=== PATIENT | female | born 1950 | race Caucasian/White ===

== ENCOUNTER 2020-09-15 04:25 | Emergency (ER) | payer MEDICARE ==
--- NOTE | 2020-09-15 05:08 | RADIOLOGY REPORT (SQ) ---
EXAM DESCRIPTION: CT HEAD WITHOUT IV CONTRAST COMPLETED DATE/TME: 09/15/2020 04:48 CLINICAL HISTORY: 70 years, Female, dysphasia COMPARISON: None. TECHNIQUE: Noncontrast images of the brain were obtained. Images stored on PACS. All CT scanners at this facility use dose modulation, iterative reconstruction, and/or weight based dosing when appropriate to reduce radiation dose to as low as reasonably achievable (ALARA). [facility]: Dose Right [facility]: CareDose [facility]: Dose Right [facility]: Teradose 4D [facility]: [employer] Technologies LIMITATIONS: None. FINDINGS: There is no acute intracranial hemorrhage, abnormal mass effect, or major vascular territorial infarction. Bilateral basal ganglia calcifications are noted. There is no hydrocephalus. The calvarium appears intact. The visualized portions of the paranasal sinuses and mastoid air cells are clear. IMPRESSION: No acute abnormality as above. TECHNICAL DOCUMENTATION: Quality ID # [id number]: Final reports with documentation of one or more dose reduction techniques (e.g., Automated exposure control, adjustment of the mA and/or kV according to patient size, use of iterative reconstruction technique) copyright 2011 [employer]- All Rights Reserved
[2020-09-15 06:16] LABS: ABSOLUTE BASOPHILS # (AUTO) 0.1 10^3/uL (0.0-0.2); ABSOLUTE LYMPHOCYTES (AUTO) 1.3 10^3/uL (0.5-4.7); ABSOLUTE MONOCYTES (AUTO) 0.6 10^3/uL (0.1-1.4); ABSOLUTE NEUT (AUTO) 6.6 10^3/uL (1.7-8.2); BASOPHILS % (AUTO) 0.7 % (0-2); EOSINOPHILS % (AUTO) 0.6 % (0-6); HEMATOCRIT 46.3 % (36.0-47.0); HEMOGLOBIN 15.7 g/dL (12.0-15.5); INTERNATIONAL RATION (INR) 0.97; MEAN CORPUSCULAR HEMOGLOBIN 28.4 pg (27.0-33.4); MEAN CORPUSCULAR VOLUME 83 fl (80-97); MONOCYTES % (AUTO) 6.7 % (3-13); PLATELET COUNT 243 10^3/uL (150-450); RED BLOOD COUNT 5.55 10^6/uL (3.72-5.28); RED CELL DISTRIBUTION WIDTH 13.3 % (11.5-14.0); TOTAL CELLS COUNTED % (AUTO) 100 %; WHITE BLOOD COUNT 8.6 10^3/uL (4.0-10.5)
[2020-09-15 06:22] LABS: D-DIMER 0.31 ug/mL (0.00-0.50); PROTHROMBIN TIME 13.1 SEC (11.4-15.4)
--- NOTE | 2020-09-15 06:26 | ER Document Report ---
ED Neuro Symptoms/Deficit - General Chief Complaint: S/S of Possible Stroke Stated Complaint: TROUBLE SPEAKING,NUMBNESS IN EXTREMITIES Time Seen by Provider: 09/15/20 06:04 Primary Care Provider: NAOMI BASS FNP-C [Primary Care Provider] - Follow up as needed Mode of Arrival: Ambulatory Information source: Patient Cannot obtain history due to: Altered mental status Notes: 09/15/20 05:02 - ED Nursing Note by GRECIA HUNTLEY [facility] Num: [id number] : 1950 Patient Age: 70 pt awoke at 0341 w/expressive aphasia that lasted 5 min. she was diaphoretic, shaking, blurred vision, amd bilateral arms numb. she recently was started on BP med. pt drove herself to the hospital. pt speaking is leonardo. equal handgrips. Initialized on 09/15/20 05:02 - END OF NOTE MY NOTES 70-year-old female arrives by POV driving herself to the ER after she experienced 5 minutes of expressive aphasia that began around 0 341. She also had tingling and numbness of all 4 extremities with blurred vision. Patient has had multiple episodes of hypertension problems over the years and last saw [facility] clinic last Monday with 180/108. She was started on a blood pressure medicine that began with I and we suspect this is Avapro 300 mg. 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 She reports at my exam time of 0610 that she no longer has any blurred vision or aphasia problems but still has some tingling of her fingertips and mouth and tongue. Patient's chest x-ray was within normal limits her CT of head was within normal limits. She went to see her nephew on [address] [facility] and began to have nosebleeds and headaches for 4 days while staying there. She returned home here in [place] with hypertension and expressive aphasia at that time which was also brief and self-limiting. Patient reports she does not drink or smoke [place]. She reports last night her [employer] lost and this could be why her blood pressure was high. I advised her of her increased hematocrit and RBCs TRAVEL OUTSIDE OF THE [place] IN LAST 30 DAYS: No - HPI Patient complains to provider of: Paresthesia Onset: Just prior to arrival Awoke with symptoms: Yes Quality of pain: No pain Severity: Mild Pain Level: 1 Was STROKE ALERT Called: No Baseline Cognitive: Alert, oriented X 3 Baseline Gait: Walks w/o assistance - Related Data Allergies/Adverse Reactions: No Known Allergies Allergy (Unverified 09/15/20 05:29) Home Medications: asa, bp med Past Medical History - General Information source: Patient - Social History Smoking Status: Never Smoker Cigarette use (# per day): No Chew tobacco use (# tins/day): No Smoking Education Provided: No Frequency of alcohol use: None Drug Abuse: None Lives with: Family Family History: Reviewed & Not Pertinent Patient has suicidal ideation: No Patient has homicidal ideation: No Review of Systems - Review of Systems Constitutional: No symptoms reported EENT: No symptoms reported Cardiovascular: No symptoms reported Respiratory: No symptoms reported Gastrointestinal: No symptoms reported Genitourinary: No symptoms reported Female Genitourinary: No symptoms reported Musculoskeletal: No symptoms reported Skin: No symptoms reported Hematologic/Lymphatic: No symptoms reported Neurological/Psychological: See HPI, Tingling -: Yes All other systems reviewed and negative Physical Exam - Vital signs Vitals: Temp Pulse Resp BP Pulse Ox 98.2 F 112 H 16 193/104 H 96 09/15/20 04:26 09/15/20 04:26 09/15/20 04:26 09/15/20 04:26 09/15/20 04:26 Interpretation: Hypertensive - General General appearance: Appears well, Alert - HEENT Head: Normocephalic, Atraumatic Eyes: Normal Pupils: PERRL - Respiratory Respiratory status: No respiratory distress Chest status: Nontender Breath sounds: Normal Chest palpation: Normal - Cardiovascular Rhythm: Regular Heart sounds: Normal auscultation Murmur: No - Abdominal Inspection: Normal Distension: No distension Bowel sounds: Normal Tenderness: Nontender Organomegaly: No organomegaly - Rectal Hemorrhoids: Other - deferred - Genitourinary Bimanuel exam: Other - deferred - Back Back: Normal, Nontender - Extremities General upper extremity: Tender - right lat distal arm/prox FA to p/p, Normal color, Normal ROM, Normal temperature General lower extremity: Normal inspection, Nontender, Normal color, Normal ROM, Normal temperature, Normal weight bearing. No: Sayda's sign - Neurological Neuro grossly intact: Yes Cognition: Normal Orientation: AAOx4 Crane Coma Scale Eye Opening: Spontaneous Crane Coma Scale Verbal: Oriented Viviana Coma Scale Motor: Obeys Commands Crane Coma Scale Total: 15 Speech: Normal Motor strength normal: LUE, RUE, LLE, RLE Sensory: Normal - Psychological Associated symptoms: Anxious - Skin Skin Temperature: Warm Skin Moisture: Dry Skin Color: Normal Course - Vital Signs Vital signs: Temp Pulse Resp BP Pulse Ox 98.2 F 75 18 145/66 H 94 09/15/20 04:26 09/15/20 06:37 09/15/20 07:40 09/15/20 07:40 09/15/20 07:40 - Laboratory Result Diagrams: 09/15/20 05:43 09/15/20 06:53 Laboratory results interpreted by me: 09/15/20 09/15/20 09/15/20 05:43 06:53 06:53 RBC 5.55 H Hgb 15.7 H Sodium 136.7 L Glucose 153 H Calcium 10.4 H TSH 0.20 L - Diagnostic Test Radiology Studies Status: Radiology Image Reviewed, Radiology Report Reviewed Radiology reviewed: Reports reviewed Radiology results interpreted by me: 09/15/20 09:56 nad read by me/agree with radiology - EKG Interpretation by Me EKG shows normal: Sinus rhythm Rate: Normal Rhythm: NSR - [address] elevation no ST depression no T wave elevation no T wave depression and axis within normal limits and this was read by myself and I agree with the EKG reading as well. Discharge - Discharge Clinical Impression: Symptoms of cerebrovascular accident (CVA) Hypertension Qualifiers: Hypertension type: unspecified Qualified Code(s): I10 - Essential (primary) hypertension Condition: Stable Disposition: HOME, SELF-CARE Additional Instructions: Follow-up with personal doctor to recheck your blood pressure and also recheck y our H&H. Your hemoglobin was quite high today and needs to be reevaluated. Return to ER as needed take medicines as directed try to maintain a low-salt diet. Prescriptions: Clonidine HCl [Catapres 0.2 mg Tablet] 0.2 mg PO Q12 #60 tab Referrals: NAOMI BASS FNP-C [Primary Care Provider] - Follow up as needed
[2020-09-15] MEDS ORDERED: CLONIDINE HCL 0.2 MG TABLET PO ONE (06:27)
--- NOTE | 2020-09-15 06:57 | RADIOLOGY REPORT (SQ) ---
EXAM DESCRIPTION: XR CHEST 1 VIEW COMPLETED DATE/TME: 09/15/2020 06:19 CLINICAL HISTORY: cva sx COMPARISON: None. FINDINGS: Single frontal radiograph view of the chest. Cardiomediastinal silhouette: Atherosclerotic calcification of the thoracic aorta. Heart is not enlarged. Leads overlie the chest. Lungs: No consolidation, pneumothorax, or pleural effusion. Bones: Degenerative endplate spondylosis of the visualized spine. Upper abdomen: No abnormality identified. IMPRESSION: 1. No acute pulmonary process identified.
[2020-09-15 07:21] LABS: ALBUMIN 4.7 g/dL (3.5-5.0); ALKALINE PHOSPHATASE 94 U/L (38-126); ANION GAP 9 (5-19); ASPARTATE AMINO TRANSFERASE 22 U/L (14-36); BILIRUBIN,DIRECT 0.1 mg/dL (0.0-0.4); BILIRUBIN,TOTAL 0.6 mg/dL (0.2-1.3); BLOOD UREA NITROGEN 15 mg/dL (7-20); CALCIUM 10.4 mg/dL (8.4-10.2); CARBON DIOXIDE 24 mmol/L (22-30); CHLORIDE 104 mmol/L (98-107); CREATINE KINASE 40 U/L (30-135); GLUCOSE 153 mg/dL (75-110); POTASSIUM 4.4 mmol/L (3.6-5.0); TOTAL PROTEIN 8.2 g/dL (6.3-8.2)
[2020-09-15 08:00] VITALS: BP 145/66
--- NOTE | 2020-09-15 17:46 | EKG REPORT ---
SEVERITY:- NORMAL ECG - SINUS RHYTHM : Confirmed by: Gulshan Osorio 15-Sep-2020 17:46:05
== END 2020-09-15 08:21 | disposition home or self-care (01) ==
LOC: ER 04:25
DX: R47.01 Aphasia (principal); R20.0 Anesthesia of skin; R61 Generalized hyperhidrosis; R25.1 Tremor, unspecified; H53.8 Other visual disturbances; I10 Essential (primary) hypertension; Z79.82 Long term (current) use of aspirin; Z79.899 Other long term (current) drug therapy
CPT/HCPCS: 93005; 99285; 36415; 82550; 84443; 85025; 85610; 80053; 84484; 85379; 71045; 70450; 93010; A9270

== ENCOUNTER 2020-11-05 20:31 | Emergency (ER) | payer MEDICARE ==
[2020-11-05 21:43] LABS: ABSOLUTE BASOPHILS # (AUTO) 0.1 10^3/uL (0.0-0.2); ABSOLUTE EOSINOPHILS # (AUTO) 0.1 10^3/uL (0.0-0.6); ABSOLUTE LYMPHOCYTES (AUTO) 1.3 10^3/uL (0.5-4.7); ABSOLUTE MONOCYTES (AUTO) 0.8 10^3/uL (0.1-1.4); BASOPHILS % (AUTO) 0.6 % (0-2); EOSINOPHILS % (AUTO) 0.5 % (0-6); HEMATOCRIT 45.4 % (36.0-47.0); HEMOGLOBIN 15.5 g/dL (12.0-15.5); LYMPHOCYTES % (AUTO) 12.6 % (13-45); MEAN CORPUSCULAR HEMOGLOBIN 28.3 pg (27.0-33.4); MEAN CORPUSCULAR HGB CONC 34.2 g/dL (32.0-36.0); MEAN CORPUSCULAR VOLUME 83 fl (80-97); MONOCYTES % (AUTO) 7.5 % (3-13); PLATELET COUNT 283 10^3/uL (150-450); RED BLOOD COUNT 5.49 10^6/uL (3.72-5.28); RED CELL DISTRIBUTION WIDTH 13.1 % (11.5-14.0); SEGMENTED NEUTROPHILS % (AUTO) 78.8 % (42-78); TOTAL CELLS COUNTED % (AUTO) 100 %; WHITE BLOOD COUNT 10.1 10^3/uL (4.0-10.5)
[2020-11-05 21:51] LABS: ALBUMIN 4.2 g/dL (3.5-5.0); ALKALINE PHOSPHATASE 67 U/L (38-126); ANION GAP 10 (5-19); ASPARTATE AMINO TRANSFERASE 22 U/L (14-36); BILIRUBIN,DIRECT 0.3 mg/dL (0.0-0.4); BILIRUBIN,TOTAL 0.4 mg/dL (0.2-1.3); BLOOD UREA NITROGEN 19 mg/dL (7-20); CALCIUM 11.2 mg/dL (8.4-10.2); CARBON DIOXIDE 34 mmol/L (22-30); CHLORIDE 93 mmol/L (98-107); CREATINE KINASE 42 U/L (30-135); GLUCOSE 190 mg/dL (75-110); POTASSIUM 3.4 mmol/L (3.6-5.0); TOTAL PROTEIN 7.6 g/dL (6.3-8.2)
[2020-11-05 22:00] LABS: CREATINE KINASE MB 0.58 ng/mL (<4.55)
[2020-11-05 22:02] LABS: TROPONIN I < 0.012 ng/mL
--- NOTE | 2020-11-05 23:20 | ER Document Report ---
ED Blood Pressure Problem - General Chief Complaint: High Blood Pressure Stated Complaint: HYPERTENSION Time Seen by Provider: 11/05/20 21:42 Primary Care Provider: RUMA NOVOA NP [Primary Care Provider] - Follow up as needed Mode of Arrival: Medic Information source: Patient Notes: This 70-year-old woman presents to the emergency department with a history of developed rapid heartbeat and also elevated blood pressure was seen at the fire rescue station and the to the emergency department. Patient states that she has been seeing a nurse practitioner and has had her medications changed approximately 3-4 times. She is scheduled to follow-up with a bender machine in a week. There no chest pain episodes of dizziness lightheadedness presently her blood pressure is 126/83 heart rate is 76. Labs were done and are being reviewed. Patient states that she feels silly being here there is nothing that can be done at this point. Explained to her that we are going to monitor her blood pressure closely and will make some treatment decisions if needed. TRAVEL OUTSIDE OF THE [place] IN LAST 30 DAYS: No - Related Data Allergies/Adverse Reactions: No Known Allergies Allergy (Unverified 09/15/20 05:29) Home Medications: Amlodipine 5mg/qd, HCTZ 25mg/qd, clonidine 0.1mg/qd Past Medical History - Social History Smoking Status: Never Smoker Chew tobacco use (# tins/day): No Frequency of alcohol use: None Drug Abuse: None Family History: Reviewed & Not Pertinent Patient has homicidal ideation: No - Past Medical History Cardiac Medical History: Reports: Hx Hypertension Past Surgical History: Reports: Hx Section Review of Systems - Review of Systems Notes: Constitutional: Negative for fever. HENT: Negative for sore throat. Eyes: Negative for visual changes. Cardiovascular: See HPI Respiratory: Negative for shortness of breath. Gastrointestinal: Negative for abdominal pain, vomiting or diarrhea. Genitourinary: Negative for dysuria. Musculoskeletal: Negative for back pain. Skin: Negative for rash. Neurological: Negative for headaches, weakness or numbness. 10 point ROS negative except as marked above and in HPI. Physical Exam - Vital signs Vitals: Temp 98.6 F 11/05/20 20:31 - Notes Notes: PHYSICAL EXAMINATION: Physical Exam: General: Well-nourished well-developed 70-year-old woman in no acute distress HEENT: NC/AT, pupils equal round and reactive to light, MM moist,nares clear, oropharynx clear, airway patent Neck: supple, no adenopathy, no masses. Good range of motion Lungs: clear, no wheezing, no rales no rhonchi CVS: Regular rate and rhythm no murmur gallop or rub Abdomen: Soft, active, nontender, no masses, no hepatosplenomegaly Ext: No edema, clubbing or cyanosis. Neuro: Alert and responsive, moving all 4 extremities on command, cranial nerves intact, no focal findings Skin: Intact no open lesions, no rash Course - Vital Signs Vital signs: Temp Pulse Resp BP Pulse Ox 97.9 F 71 18 121/62 96 11/05/20 23:00 11/05/20 23:00 11/05/20 23:00 11/05/20 23:00 11/05/20 23:00 - Laboratory Results Result Diagrams: 11/05/20 20:58 11/05/20 20:58 Laboratory Results Interpreted: 11/05/20 11/05/20 20:58 20:58 RBC 5.49 H Lymph % (Auto) 12.6 L Seg Neutrophils % 78.8 H Sodium 136.6 L Potassium 3.4 L Chloride 93 L Carbon Dioxide 34 H Glucose 190 H Calcium 11.2 H Critical Laboratory Results Reviewed: No Critical Results - Radiology Results Critical Radiology Results Reviewed: No Critical Results - EKG Interpretation by Tx Rate: Normal - EKG interpreted by Dr. Bellamy: Normal sinus rhythm, rate 70 8, RI interval 132 ms QT interval 400 ms, normal axis, no acute ST or T wave abnormalities, no ischemic findings, compared to EKG dated 09/15/2020,no acute interval changes.Interpretation: Normal EKG (artifact) Additional EKG results interpreted by me: 11/05/20 23:24 The computer interpretation of the EKG specifies atrial fibrillation, this is an error based on artifact on the tracing. The P waves are present and can be interpreted. Discharge - Discharge Clinical Impression: Poorly-controlled hypertension Condition: Good Disposition: HOME, SELF-CARE Instructions: High Blood Pressure, Requiring Treatment ([facility]) Additional Instructions: You were seen in the emergency department today with episode of elevated blood pressure and rapid heartbeat. Please keep the appointment with the bender machine and continue your usual medications. If your symptoms are worsening or if you have other concerns you may return to the emergency department for further evaluation and treatment HOME CARE INSTRUCTIONS & INFORMATION: Thank you for choosing us for your medical needs. We hope you're satisfied with the care you received. After you leave, you must properly care for your problem and, at the same time, observe its progress. Any condition can change. Some illnesses can change rapidly over hours or days. If your condition worsens, return to the Emergency Department or see your physician promptly. ABOUT YOUR X-RAYS AND EKG'S: If you had an EKG or X-rays taken, they have been read by the Emergency Physician. The X-rays and EKG's will also be read by a Radiologist or Line Clearance Foreman within 24 hours. If discrepancies are noted, you will be notified by telephone. Please be certain the ED has a correct telephone number & address where you can be reached. Also, realize that some fractures or abnormalities do not show up on initial X-rays. If your symptoms continue, see your physician. ABOUT YOUR LABORATORY TEST: If you had laboratory tests, the results have been reviewed by the Emergency Physician. Some test results (for example cultures) may not be available for several days. You will be contacted if any test result shows you need additional treatment. Please be certain the ED has a correct telephone number and address where you can be reached. ABOUT YOUR MEDICATIONS: You will receive instructions on how to take your medicine on the prescription label you receive. Additional information may be provided by the Pharmacy. If you have questions afterwards, call the ED for clarification or further instructions. Some prescribed medications may cause drowsiness. Do not perform tasks such as driving a car or operating machinery without consulting your Pharmacist. If you feel you need a refill of pain medication, your condition will need re-evaluation. Please do not call for a refill of any medication. ABOUT YOUR SIGNATURE: Signature of this document acknowledges to followin. Understanding that you received emergency treatment and that you may be released before al medical problems are known or treated. Please be certain the ED has a correct phone number & address where you can be reached. 2. Acknowledgement that you will arrange for follow-up care as recommended. 3. Authorization for the Emergency Physician to provide information to your follow-up Physician in order to maximize your care. AT ANY TIME, IF YOUR SYMPTOMS CHANGE SIGNIFICANTLY OR WORSEN OR YOU DEVELOP NEW SYMPTOMS, RETURN TO THE EMERGENCY DEPARTMENT IMMEDIATELY FOR RE-EVALUATION. OUR GOAL IS TO PROVIDE EXCELLENT MEDICAL CARE! WE HOPE THAT WE HAVE MET YOUR EXPECTATIONS DURING YOUR EMERGENCY DEPARTMENT VISIT AND THAT YOU FEEL YOU HAVE RECEIVED EXCELLENT CARE! Referrals: RUMA NOVOA NP [Primary Care Provider] - Follow up as needed
[2020-11-06] VITALS: BP 129/69
--- NOTE | 2020-11-06 09:52 | EKG REPORT ---
SEVERITY:- ABNORMAL ECG - SINUS RHYTHM BASELINE ARTEFACT : Confirmed by: Lázaro Velazquez MD 06-Nov-2020 09:51:53
== END 2020-11-06 | disposition home or self-care (01) ==
LOC: ER 20:31
DX: I10 Essential (primary) hypertension (principal); Z79.899 Other long term (current) drug therapy
CPT/HCPCS: 36415; 80053; 82550; 82553; 84484; 85025; 93005; 93010; 99284